=== PATIENT | male | born 1940 | race Caucasian/White ===

== ENCOUNTER 2016-10-30 17:34 | Emergency (ER) | payer MEDICARE, BC ==
[2016-10-30 18:19] VITALS: BP 172/81
[2016-10-30] MEDS ORDERED: Lidocaine 2% VISCOUS* 15 ML UDC PO ONE (19:09)
--- NOTE | 2016-10-30 19:09 | UC ---
Abdominal Pain Male HPI - HPI Summary HPI Summary: 1 WEEK OF INTERMITTENT EPIGASTRIC PAIN, FATIGUE AND CHILLS. NO FEVER. NO CP, NAUSEA, SOB OR SWEATS. NO ASSOCIATION WITH FOOD. NOT WORSE WITH POSITION CHANGE OR EXERTION. - History of Current Complaint Chief Complaint: UCAbdominalPain Stated Complaint: ABD PAIN Time Seen by Provider: 10/30/16 18:52 Hx Obtained From: Patient, Family/Home Appraiser - Onset/Duration: Gradual Onset, Lasting Days, Still Present Timing: Intermittent Episodes Lasting: Severity Initially: Mild Severity Currently: Mild Pain Intensity: 2 Pain Scale Used: 0-10 Numeric Location: Epigastric Radiates: No Character: Aching, Dull Aggravating Factor(s):: Nothing Alleviating Factor(s): Spontaneous Resolution Associated Signs And Symptoms: Positive: Negative - Allergies/Home Medications Allergies/Adverse Reactions: Allergies Allergy/AdvReac Type Severity Reaction Status Date / Time No Known Allergies Allergy Verified 10/30/16 18:19 PMH/Surg Hx/FS Hx/Imm Hx Cardiovascular History Of: Reports: Hypertension GI/ History Of: Reports: Renal Disease - hydronephrosis,? mass - Surgical History Surgical History: Yes Surgery Procedure, Year, and Place: [place] and [place] [facility] [place] CHILD , [place] [facility] [place] Family History Known Family History: Negative: Hypertension - Social History Alcohol Use: Rare Substance Use Type: None Smoking Status (MU): Former Smoker Amount Used/How Often: 1 PPD X 5 YEARS Have You Smoked in the Last Year: No When Did the Patient Quit Smoking/Using Tobacco: 31 YEARS AGO Review of Systems Constitutional: Negative Respiratory: Negative Cardiovascular: Negative Gastrointestinal: Abdominal Pain Genitourinary: Negative All Other Systems Reviewed And Are Negative: Yes Physical Exam Triage Information Reviewed: Yes Appearance: Well-Appearing, No Pain Distress, Well-Nourished Vital Signs: Initial Vital Signs Temp 97.8 F 10/30/16 18:13 Pulse 60 10/30/16 18:13 Resp 18 10/30/16 18:13 BP 172/81 10/30/16 18:13 Pulse Ox 97 10/30/16 18:13 Vital Signs Reviewed: Yes Eyes: Positive: Conjunctiva Clear ENT: Positive: Hearing grossly normal Neck: Positive: Supple Respiratory Exam: Normal Cardiovascular Exam: Normal Abdomen Description: Positive: Soft, Other: - MILDLY TENDER EPIGASTRIC. Negative: CVA Tenderness (R), CVA Tenderness (L), Distended, Guarding Bowel Sounds: Positive: Present Musculoskeletal: Positive: No Edema Neurological: Positive: Alert Psychological: Positive: Age Appropriate Behavior Skin: Negative: rashes Re-Evaluation - Re-Evaluation First Eval Re-Evaluation Time: 19:35 - PAIN RESOLVED AFTER GI COCKTAIL Change: Improved Abd Pain Male Course/Dx - Differential Dx/Clinical Impression Provider Diagnoses: REFLUX Discharge - Discharge Plan Condition: Stable Disposition: HOME Prescriptions: Omeprazole 40 mg PO DAILY #30 cap Patient Education Materials: Gastroesophageal Reflux Disease (ED) Referrals: Quyen Patrick MD [Primary Care Provider] - If Needed Additional Instructions: TAKE THE REFLUX MEDICINE IN THE MORNING (IDEALLY AT LEAST 30 MINUTES BEFORE YOU EAT). EAT SLOWLY. STAY UPRIGHT AT LEAST 30 MINUTES AFTER EATING. EAT SMALLER, MORE FREQUENT MEALS OPPOSED TO LARGE INFREQUENT MEALS. AVOID POSSIBLE TRIGGER FOODS - GREASY, SPICY, ACIDIC FOODS. CAFFEINE, ALCOHOL.
[2016-10-30] MEDS ORDERED: Al Hydrox/Mg Hydrox/Simet LIQ* 30 ML UDC PO ONE (19:10)
== END 2016-10-30 20:00 | disposition home or self-care (01) ==
LOC: UCEAST 17:34
DX: K21.9 Gastro-esophageal reflux disease without esophagitis (principal); Z87.891 Personal history of nicotine dependence
CPT/HCPCS: 99212; A9270-GY; G0463

== ENCOUNTER 2017-12-19 19:02 | Emergency (ER) | payer MEDICARE, BC ==
[2017-12-19] MEDS ORDERED: Tetan/Diph/Pertus SYR(Tdap)* 0.5 ML SYR(BOOSTRIX) use SYR IM ONE (21:02)
[2017-12-19] MEDS ORDERED: Amoxicillin/Clavulanate TAB* 875 MG PO ONE (21:02)
--- NOTE | 2017-12-19 21:38 | RAD ---
INDICATION: Right hand pain and redness after being "spurred by rooster" COMPARISON: None. TECHNIQUE: 4 views of the right hand were obtained. FINDINGS: The adequately corticated bones are in normal alignment. No significant focal osseous abnormality or fracture is seen. Mild degenerative changes include joint space narrowing of the distal greater than the proximal interphalangeal joints with marginal osteophyte formation at the index and middle finger distal interphalangeal joints. IMPRESSION: Age-appropriate degenerative changes without radiographically apparent acute abnormality. If the patient's symptoms persist, follow-up imaging is recommended.
[2017-12-19 22:13] VITALS: BP 133/74
--- NOTE | 2017-12-20 05:05 | ED ---
Augie Branch Jennifer, scribed for Milton Arnett MD on 12/19/17 at 2054 . Upper Extremity Pain - HPI Summary HPI Summary: The patient is a 77 year old male who presents with right hand pain and redness after being spurred by his rooster twice this morning at 06:30. The patient states there was some bleeding at the site of injury. Flicking his wrists worsens the pain. He describes that one spur went into his dorsal hand sideways about 1 inch while another spur poked him on the palm of his hand. The patient denies his tetanus is up to date. - History of Current Complaint Chief Complaint: EDExtremityUpper Stated Complaint: SPURRED BY ROOSTER Time Seen by Provider: 12/19/17 20:39 Hx Obtained From: Patient Mechanism Of Injury: Other - Spurred by rooster Onset/Duration: Started Hours Ago - 15 hours, Still Present Timing: Constant Severity Initially: Mild Severity Currently: Mild Pain Location: Hand - palm and dorsal side of right hand Character: Unable to Describe Aggravating Factor(s): Movement, Flexion Alleviating Factor(s): Nothing Associated Signs & Symptoms: Positive: Redness, Other - Hand pain - Allergies/Home Medications Allergies/Adverse Reactions: Allergies Allergy/AdvReac Type Severity Reaction Status Date / Time No Known Allergies Allergy Verified 12/19/17 19:30 PMH/Surg Hx/FS Hx/Imm Hx Endocrine/Hematology History: Denies: Hx Diabetes Cardiovascular History: Reports: Hx Hypertension Denies: Other Cardiovascular Problems/Disorders Respiratory History: Reports: Hx Sleep Apnea Denies: Other Respiratory Problems/Disorders GI History: Denies: Other GI Disorders History: Reports: Hx Benign Prostatic Hyperplasia, Hx Renal Disease - hydronephrosis,? mass, Other Problems/Disorders - hydronephrosis Musculoskeletal History: Denies: Other Musculoskeletal History Sensory History: Reports: Hx Contacts or Glasses - READING Denies: Hx Hearing Aid Opthamlomology History: Reports: Hx Contacts or Glasses - READING - Surgical History Surgery Procedure, Year, and Place: [place] [facility] [place] CH[place] , [place] [facility] [place]x Anesthesia Reactions: No Infectious Disease History: No Infectious Disease History: Denies: Traveled Outside the [place] in Last 30 Days - Family History Known Family History: Negative: Hypertension - Social History Alcohol Use: Rare Substance Use Type: Reports: None Smoking Status (MU): Former Smoker Amount Used/How Often: 1 PPD X 5 YEARS Have You Smoked in the Last Year: No Review of Systems Positive: Other - Right hand pain Positive: Other - Redness on right hand around sites of injury All Other Systems Reviewed And Are Negative: Yes Physical Exam - Summary Physical Exam Summary: GENERAL: ~Patient is a well developed and nourished M who is lying comfortable in the stretcher. ~Patient is not in any acute respiratory distress. HEAD AND FACE: Normocephalic EYES: PERRLA, EOMI x 2. EARS: Hearing grossly intact. MOUTH: Oropharynx within normal limits. NECK: Supple, trachea is midline, no adenopathy, no JVD, no carotid bruit. CHEST: Symmetric, no tenderness at palpation LUNGS: Clear to auscultation bilaterally. No wheezing or crackles. CVS: Regular rate and rhythm, S1 and S2 present, no murmurs or gallops appreciated. ABDOMEN: Soft, non-tender. Bowel sounds are normal. No abdominal abnormal pulsations. EXTREMITIES: Penetration wound to palmar surface and dorsal aspect of right hand. Full ROM in all major joints, no edema, no cyanosis or clubbing. NEURO: Neurovascularly intact, all nerves working including ulnar, radial, and medial nerves. Alert and oriented x 3. No acute neurological deficits. Speech is normal and follows commands. SKIN: Dry and warm Triage Information Reviewed: Yes Vital Signs On Initial Exam: Initial Vitals Temp Pulse Resp BP Pulse Ox 98.8 F 69 16 129/70 97 12/19/17 19:20 12/19/17 19:20 12/19/17 19:20 12/19/17 19:20 12/19/17 19:20 Vital Signs Reviewed: Yes Diagnostics - Vital Signs Vital Signs Temp Pulse Resp BP Pulse Ox 12/19/17 19:20 98.8 F 69 16 129/70 97 - Laboratory Lab Statement: Any lab studies that have been ordered have been reviewed, and results considered in the medical decision making process. - Radiology Hand XR Xray Interpretation: No Acute Changes - Age-appropriate degenerative changes without radiographically apparent acute abnormality. If the patient's symptoms persist, follow-up imaging is recommended. Dr. Arnett has reviewed this report. Radiology Interpretation Completed By: Radiologist Course/Dx - Course Course Of Treatment: The patient is a 77 year old male who presents with right hand pain and redness after being spurred by a rooster twice this morning at 06: 30. In the ED course the patient was given Tetanus and Augmentin. Hand XR was unremarkable. The patient will be discharged home on 10-day course of Augmentin and given strict return precautions, in particular infection. The patient is diagnosed with hand injury. - Diagnoses Provider Diagnoses: Hand injury Discharge - Sign-Out/Discharge Documenting (check all that apply): Discharge/Admit/Transfer - Discharge Plan Condition: Stable Disposition: HOME Prescriptions: Amoxicillin/Clavulanate TAB* [Augmentin TAB 875*] 875 mg PO BID #20 tab Patient Education Materials: Wound Infection (ED) Referrals: Quyen Patrick MD [Primary Care Provider] - Additional Instructions: Follow up with your primary care physician in three days. Return to the emergency department for any new or worsening symptoms. - Billing Disposition and Condition Condition: STABLE Disposition: HOME The documentation as recorded by the Augie baez Jennifer accurately reflects the service I personally performed and the decisions made by , Milton Arnett MD.
== END 2017-12-19 22:13 | disposition home or self-care (01) ==
LOC: ED 19:02
DX: S61.451A Open bite of right hand, initial encounter (principal); W61.91XA Bitten by other birds, initial encounter; Y92.9 Unspecified place or not applicable; Z87.891 Personal history of nicotine dependence
CPT/HCPCS: 90471; 90715; 99282; A9270-GY

== ENCOUNTER 2018-02-19 21:54 | Emergency (ER) | payer MEDICARE, BC ==
[2018-02-19 22:03] VITALS: BP 127/65
[2018-02-19] MEDS ORDERED: Lidocaine 2% PF * 5 ML VIAL INJ ONE (22:05)
--- NOTE | 2018-02-19 22:05 | UC ---
Laceration HPI - HPI Summary HPI Summary: 77 yo male presents with laceration to LEFT hand. 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 He cleaned it well and his convinced him to come to for ? stitches. Last tetanus was within the last 5 years from other injuries. - History Of Current Complaint Chief Complaint: UCLaceration Stated Complaint: LACERATION Time Seen by Provider: 02/19/18 22:04 Hx Obtained From: Patient Laceration Location: Finger Mechanism Of Injury: Sharp Trauma Severity: Mild Pain Intensity: 1 Pain Scale Used: 0-10 Numeric - Allergies/Home Medications Allergies/Adverse Reactions: Allergies Allergy/AdvReac Type Severity Reaction Status Date / Time No Known Allergies Allergy Verified 02/19/18 22:03 Home Medications: Home Medications NK [No Home Medications Reported] 02/19/18 [History Confirmed 02/19/18] PMH/Surg Hx/FS Hx/Imm Hx - Additional Past Medical History Additional PMH: None Previously Healthy: Yes - Surgical History Surgical History: Yes Surgery Procedure, Year, and Place: Right and left Hernia Rep[place] 1992, [place] [facility] [place] Tonsillect[place] A CHILD , pro[place]E surgery, 02/17/14, [facility] [place] - Family History Known Family History: Positive: None Negative: Hypertension - Social History Occupation: Retired Lives: With Family Alcohol Use: Rare Substance Use Type: None Smoking Status (MU): Former Smoker Amount Used/How Often: 1 PPD X 5 YEARS Have You Smoked in the Last Year: No When Did the Patient Quit Smoking/Using Tobacco: 31 YEARS AGO Review of Systems Constitutional: Negative Skin: Other - Laceration left hand Respiratory: Negative Cardiovascular: Negative Neurovascular: Negative Musculoskeletal: Negative Neurological: Negative Psychological: Negative All Other Systems Reviewed And Are Negative: Yes Physical Exam - Summary Physical Exam Summary: GENERAL: NAD. WDWN. No pain distress. SKIN: 1.5cm stellate laceration to base of left thumb. Scant bleeding. Subcutaneous tissue exposed. No tendon involvement. No streaking, bleeding, or drainage. NECK: Supple. Nontender. No lymphadenopathy. CHEST: No accessory muscle use. Breathing comfortably and in no distress. CV: Pulses intact MSK: FROM Left thumb. NEURO: Alert. Sensations left hand and all fingers PSYCH: Age appropriate behavior. Triage Information Reviewed: Yes Vital Signs: Initial Vital Signs Temp 99.0 F 02/19/18 21:59 Pulse 75 02/19/18 21:59 Resp 18 02/19/18 21:59 BP 127/65 02/19/18 21:59 Pulse Ox 95 02/19/18 21:59 Laceration Repair - Laceration Repair 1 Description: Stellate Laceration Size After Repair: Length (cm) - 1.5 Modified For Repair: No Cleansing Completed Via Routine Prep: Yes Closure Material: Sutures - four 5-0 prolene Closure Method: Single Layer Suture Of: Skin Suture Type: Prolene Laceration Course/Dx - Course/Dx Course Of Treatment: A time out was performed, witnessed, and signed. The area was irrigated with 500mL sterile saline. The pt elected not to receive anesthetic - local or otherwise. In the usual sterile fashion, FOUR 5-0 prolene interrupted sutures were placed. The wound was bandaged with telfa. Pt tolerated procedure well. - Differential Dx - Laceration/Wound Provider Diagnoses: Laceration left thumb Discharge - Sign-Out/Discharge Documenting (check all that apply): Patient Departure - Discharge Plan Condition: Stable Disposition: HOME Patient Education Materials: Care For Your Stitches (DC), Laceration (DC) Referrals: Quyen Patrick MD [Primary Care Provider] - Additional Instructions: If you develop a fever, shortness of breath, chest pain, new or worsening symptoms - please call your PCP or go to the ED. Your blood pressure was high at todays visit. Please see your primary provider within 4 weeks for recheck and re-evaluation. 1) Please keep the area bandaged, clean, dry, and intact for the next 24- 48hours. 2) If you develop a fever, colored or thick discharge, increased pain or swelling - please call your PCP or go to the ED. 3) Please return in 10-14 days to have your FOUR sutures removed. - Billing Disposition and Condition Condition: STABLE Disposition: Home
== END 2018-02-19 22:22 | disposition home or self-care (01) ==
LOC: UCEAST 21:54
DX: S61.012A Laceration without foreign body of left thumb without damage to nail, initial encounter (principal); W29.8XXA Contact with other powered hand tools and household machinery, initial encounter; Y93.9 Activity, unspecified; Y92.9 Unspecified place or not applicable; Z87.891 Personal history of nicotine dependence
CPT/HCPCS: 12001; 99201; G0463

== ENCOUNTER 2018-07-09 18:14 | Emergency (ER) | payer MEDICARE, BC ==
[2018-07-09 19:26] VITALS: BP 130/67
--- NOTE | 2018-07-09 20:02 | UC ---
Laceration HPI - HPI Summary HPI Summary: Patient is a 77-year-old male who presents to the for laceration to left hand that occurred just prior to arrival. Patient states he was using a drill to drill in a nail when the drill bit slipped off the nail and struck his left hand. Last tetanus immunization was this year. Symptoms are mild in severity. No significant past medical history. Touching affected area makes symptoms worse. Rest makes symptoms better. - History Of Current Complaint Chief Complaint: UCSkin Stated Complaint: HAND INJURY Time Seen by Provider: 07/09/18 19:36 Hx Obtained From: Patient Pain Intensity: 0 - Allergies/Home Medications Allergies/Adverse Reactions: Allergies Allergy/AdvReac Type Severity Reaction Status Date / Time No Known Allergies Allergy Verified 07/09/18 19:26 PMH/Surg Hx/FS Hx/Imm Hx Previously Healthy: Yes - Surgical History Surgical History: Yes Surgery Procedure, Year, and Place: Right and left Hernia Repair 1992, 2005, [facility] [place] ; Tonsillectomy A CHILD , prostatE surgery, 02/17/14, [facility] [place] - Family History Known Family History: Positive: None Negative: Hypertension - Social History Occupation: Retired Lives: With Family Alcohol Use: Rare Substance Use Type: None Smoking Status (MU): Former Smoker Amount Used/How Often: 1 PPD X 5 YEARS Have You Smoked in the Last Year: No When Did the Patient Quit Smoking/Using Tobacco: 31 YEARS AGO Review of Systems All Other Systems Reviewed And Are Negative: Yes Musculoskeletal: Positive: Other: - Laceration to left hand Is Patient Immunocompromised?: No Physical Exam Triage Information Reviewed: Yes Appearance: Well-Appearing - Pt. sitting on chair in NAD. present. Vital Signs: Initial Vital Signs Temp 99.2 F 07/09/18 19:23 Pulse 61 07/09/18 19:23 Resp 16 07/09/18 19:23 BP 130/67 07/09/18 19:23 Pulse Ox 100 07/09/18 19:23 Vital Signs Reviewed: Yes Eyes: Positive: Conjunctiva Clear Neck: Positive: Supple Musculoskeletal: Positive: Other: - 1cm triangular shaped laceration noted to the dorsal aspect of the left hand just above the MCP joint. Full ROM of digit. Mild active bleeding. No bony tenderness. Neurological Exam: Normal Neurological: Positive: Alert Psychological Exam: Normal Skin: Positive: Other - laceration as noted above. Laceration Repair - Laceration Repair 1 Description: Irregular Laceration Size After Repair: Length (cm) - 1cm Modified For Repair: No Cleansing Completed Via Routine Prep: Yes Irrigation With Pressure Irrigation Device: Yes Closure Material: Sutures - 2 4-0 Closure Method: Single Layer Suture Of: Skin Suture Type: Nylon Laceration Course/Dx - Course/Dx Course Of Treatment: Patient presenting with a simple hand laceration. He has no bony tenderness and x-ray not obtained. Wound was repaired as noted above. Patient declined anesthesia. Suture removal in 7-10 days. Keep the wound clean and dry. To avoid excessive bending of hand. To return to the urgent care for redness, swelling or drainage from wound. Patient understands and agrees with plan. - Differential Dx - Laceration/Wound Differental Diagnoses: Abrasion, Fracture, Laceration, Tendon Laceration - Diagnosis Provider Diagnosis: Hand laceration Discharge - Sign-Out/Discharge Documenting (check all that apply): Patient Departure All imaging exams completed and their final reports reviewed: No Studies - Discharge Plan Condition: Good Disposition: HOME Patient Education Materials: Care For Your Stitches (ED), Laceration (ED) Referrals: Quyen Patrick MD [Primary Care Provider] - Additional Instructions: Suture removal in 7-10 days Keep wound clean and dry Return to for redness, swelling or drainage from wound - Billing Disposition and Condition Condition: GOOD Disposition: Home
== END 2018-07-09 20:04 | disposition home or self-care (01) ==
LOC: UCEAST 18:14
DX: S61.412A Laceration without foreign body of left hand, initial encounter (principal); W29.8XXA Contact with other powered hand tools and household machinery, initial encounter; Y93.H3 Activity, building and construction; Y92.9 Unspecified place or not applicable; Z87.891 Personal history of nicotine dependence
CPT/HCPCS: 12001; 99211; G0463

== ENCOUNTER 2019-02-13 08:03 | Observation (INO) | payer MEDICARE, BC ==
[2019-02-13] MEDS ORDERED: Albuterol/Ipratropium NEB.SOL* Albuterol 2.5 MG/Ipratropium 0.5 MG 3 ML INH ONE (08:23)
--- NOTE | 2019-02-13 08:25 | ED ---
Shortness of Breath - HPI Summary HPI Summary: This pt is a 78 y/o male presenting to [facility] c/o SOB since yesterday. Pt reports he was removing moldy drywall from the basement about 1 week ago. He notes he felt fine until yesterday. Yesterday he went back to the basement for a short period to clean up. Pt states his SOB began suddenly early afternoon yesterday and has been gradually worsening since then. He has noticed he is easily out of breath with exertion. However, he was able to sleep through the night lying down. Denies fever, chest pain, nausea, vomiting. This has never happened to his in the past. Denies any pulmonary hx. Denies tobacco use. He denies recent travel. - History of Current Complaint Chief Complaint: EDShortnessOfBreath Time Seen by Provider: 02/13/19 08:15 Hx Obtained From: Patient Onset/Duration: Lasting Days - 1, Still Present Timing: Constant Current Severity: Moderate Dyspnea At: Rest Aggravating Factors: Nothing Associated Signs & Symptoms: Negative - Allergy/Home Medications Allergies/Adverse Reactions: Allergies Allergy/AdvReac Type Severity Reaction Status Date / Time No Known Allergies Allergy Verified 02/13/19 08:11 PMH/Surg Hx/FS Hx/Imm Hx Endocrine/Hematology History: Denies: Hx Diabetes Cardiovascular History: Reports: Hx Hypertension Denies: Other Cardiovascular Problems/Disorders Respiratory History: Reports: Hx Sleep Apnea Denies: Other Respiratory Problems/Disorders GI History: Denies: Other GI Disorders History: Reports: Hx Benign Prostatic Hyperplasia, Hx Renal Disease - hydronephrosis,? mass, Other Problems/Disorders - hydronephrosis Musculoskeletal History: Denies: Other Musculoskeletal History Sensory History: Reports: Hx Contacts or Glasses - READING Denies: Hx Hearing Aid Opthamlomology History: Reports: Hx Contacts or Glasses - READING - Surgical History Surgery Procedure, Year, and Place: Right and left Hernia Repair 1993, 2005, [facility] [place] Tonsillectomy A CHILD , prostatE surgery, 02/17/14, [facility] Hx Anesthesia Reactions: No Infectious Disease History: No Infectious Disease History: Denies: Traveled Outside the [place] in Last 30 Days - Family History Known Family History: Negative: Hypertension - Social History Alcohol Use: Rare Substance Use Type: Reports: None Smoking Status (MU): Former Smoker Amount Used/How Often: 1 PPD X 5 YEARS Have You Smoked in the Last Year: No Review of Systems Negative: Fever, Chills Negative: Chest Pain Positive: Shortness Of Breath Negative: Vomiting, Nausea All Other Systems Reviewed And Are Negative: Yes Physical Exam - Summary Physical Exam Summary: Appearance: The patient is well-nourished in no acute distress and in no acute pain. Skin: The skin is warm and dry and skin color reflects adequate perfusion. HEENT: The head is normocephalic and atraumatic. The pupils are equal and reactive. The conjunctivae are clear and without drainage. Nares are patent and without drainage. Mouth reveals moist mucous membranes and the throat is without erythema and exudate. The external ears are intact. The ear canals are patent and without drainage. The tympanic membranes are intact. Neck: the neck is supple with full range of motion and non-tender. There are no carotid bruits. There is no neck vein distension. Respiratory: Chest is non-tender. Lungs are clear to auscultation and breath sounds are symmetrical and equal. Cardiovascular: Heart is regular rate and rhythm. There is no murmur or rub auscultated. There is no peripheral edema and pulses are symmetrical and equal. Abdomen: The abdomen is soft and non-tender. There are normal bowel sounds heard in all four quadrants and there is no organomegaly palpated. Musculoskeletal: There is no back tenderness noted. Extremities are non-tender with full range of motion. There is good capillary refill. There is no peripheral edema or calf tenderness elicited. Neurological: Patient is alert and oriented to person, place and time. The patient has symmetrical motor strength in all four extremities. Cranial nerves are grossly intact. Deep tendon reflexes are symmetrical and equal in all four extremities. Psychiatric: The patient has an appropriate affect and does not exhibit any anxiety or depression. Triage Information Reviewed: Yes Vital Signs On Initial Exam: Initial Vitals Temp Pulse Resp BP Pulse Ox 97.5 F 87 22 132/78 87 02/13/19 08:05 02/13/19 08:05 02/13/19 08:05 02/13/19 08:05 02/13/19 08:05 Vital Signs Reviewed: Yes Diagnostics - Vital Signs Vital Signs Temp Pulse Resp BP Pulse Ox 02/13/19 08:05 97.5 F 87 22 132/78 87 - Laboratory Result Diagrams: 02/14/19 06:45 02/14/19 06:45 Lab Statement: Any lab studies that have been ordered have been reviewed, and results considered in the medical decision making process. - Radiology Chest XR Radiology Interpretation Completed By: Radiologist Summary of Radiographic Findings: IMPRESSION: Linear density at the right lower lung could be due to atelectasis or scarring. There are no prior chest x-rays for comparison to comment on chronicity. Dr. Barajas has reviewed this report. - CT Chest CTA CT Interpretation Completed By: Radiologist Summary of CT Findings: IMPRESSION: 1. No CT of evidence of pulmonary embolism. 2. There is nonspecific scattered groundglass opacification in both lungs which could be seen in the setting of pneumonitis or pulmonary edema. 3. Mildly enlarged 1.4 cm mediastinal lymph node of unknown chronicity. 4. At the right lower lung there is a pleural-based 1.9 cm density morphologically most consistent with atelectasis, though neoplasm is not completely excluded. In the absence of other signs or symptoms of malignancy, follow-up CT imaging in 3 months is likely appropriate management. 5. Mild circumferential wall thickening of the esophagus which could be seen in the setting of esophagitis. If clinically warranted superior characterization could be made with endoscopy. Dr. Barajas has reviewed this report. - EKG 08:33 Cardiac Rate: NL - at 69 bpm EKG Rhythm: Sinus Rhythm Summary of EKG Findings: normal ST, no ectopy, no STEMI. Course/Dx - Course Course Of Treatment: Mr. Li presented with a complaint of shortness of breath. Apparently several days ago he was working in the basement of his cottage and pulling a lot of baseboard off that was mildly. Yesterday he was down in the basement again for a little while working and he began to feel short of breath. He denies any chest pain but states that he had a rough night and is short of breath with any exertion today. Reportedly his pulse ox was in the 80s on room air when first evaluated. When I evaluated him he was on a couple liters and his SPO2 was in the low 90s. He's a little tachypneic without retractions or accessory muscle use. His lungs grossly sound clear. He was placed on a monitor and kept on oxygen while an EKG, chest x-ray and labs were obtained. These were generally unremarkable. He did improve somewhat with a DuoNeb. His d-dimer was very slightly elevated and I have no concrete reason for his shortness of breath therefore a CTA was obtained which revealed a pneumonitis. I gave him some Solu-Medrol and watched him. He wanted to go home but he remained tachypneic with any exertion. He did however maintained his pulse ox. I asked the hospitalist to evaluate him for admission. - Diagnoses Provider Diagnoses: Pneumonitis - Physician Notifications Discussed Care of Patient With: Trina Fink - hospitalist Time Discussed With Above Provider: 15:06 Instructed by Provider To: Other - Discussed the case with Dr. Fink, hospitalist, who will come and evaluate the pt for admission. Discharge - Sign-Out/Discharge Documenting (check all that apply): Patient Departure - Admit to [facility] Patient Received Moderate/Deep Sedation with Procedure: No - Discharge Plan Condition: Stable Disposition: ADMITTED TO [facility] - Billing Disposition and Condition Condition: STABLE Disposition: Admitted to [facility] - Attestation Statements Document Initiated by Scribe: Yes Documenting Scribe: Renay Monreal Provider For Whom Angel is Documenting (Include Credential): Reinaldo Barajas MD Scribe Attestation: IRenay, scribed for Reinaldo Barajas MD on 02/14/19 at 0756. Scribe Documentation Reviewed: Yes Provider Attestation: The documentation as recorded by the Renay baez accurately reflects the service I personally performed and the decisions made by me, Reinaldo Barajas MD Status of Scribe Document: Viewed
[2019-02-13 08:43] LABS: ABS Basophils 0.1 10^3/ul (0-0.2); ABS Eosinophils 0.4 10^3/ul (0-0.6); ABS Lymphocytes 1.2 10^3/ul (1.0-4.8); ABS Monocytes 0.8 10^3/ul (0-0.8); ABS Neutrophils 8.5 10^3/ul (1.5-7.7); Eosinophil % 3.6 %; Hematocrit 45 % (42-52); Hemoglobin 15.2 g/dL (14.0-18.0); Lymphocyte % 11.1 %; Mean Corpuscular HGB Conc 34 g/dL (31-36); Mean Corpuscular Hemoglobin 32 pg (27-31); Mean Corpuscular Volume 94 fL (80-94); Mean Platelet Volume 8.3 fL (7.4-10.4); Nucleated Red Blood Cells % 0.1; Platelet Count 246 10^3/uL (150-450); Red Blood Count 4.83 10^6 /uL (4.18-5.48); Red Cell Distribution Width 13 % (10-15)
[2019-02-13 08:55] LABS: INR 0.98 (0.82-1.09)
[2019-02-13 09:03] LABS: Albumin/Globulin Ratio 1.4 (1-3); BUN/Creatinine Ratio 13.6 (8-20); C Reactive Protein 7.75 mg/L (<8.01); Calcium 9.3 mg/dL (8.6-10.3); EGFR African American 67.6 (>60); EGFR Non-African American 55.9 (>60); Globulin 2.9 g/dL (2-4); Potassium 4.4 mmol/L (3.5-5.0); Total Bilirubin 0.9 mg/dL (0.2-1.0); Total Protein 6.9 g/dL (6.4-8.9)
[2019-02-13 09:04] LABS: Troponin I 0.01 ng/mL (<0.04)
[2019-02-13] MEDS ORDERED: Iodixanol* (CONTRAST) 320 MG/ML 100 ML SDV IV ONE (10:04)
[2019-02-13] MEDS ORDERED: methylPREDNISolone 125 MG* 2 ML VIAL IV ONE (13:50)
[2019-02-13] MEDS ORDERED: Albuterol HFA INHALER* 8 gm MDI INH ONE (14:52)
[2019-02-13] MEDS ORDERED: Acetaminophen TAB* 325 MG PO PRN (16:05)
[2019-02-13] MEDS ORDERED: Ondansetron INJ* 2 MG/ML VIAL IV PRN (16:05)
[2019-02-13] MEDS ORDERED: Azithromycin 500 mg/250 ml NS 500 MG/250 ML BAG IVPB ONE (16:28)
[2019-02-13] MEDS ORDERED: NS 0.9% 1000 ML** 1,000 ML IV SCH (16:45)
--- NOTE | 2019-02-13 18:51 | HP ---
CC: Dr. Quyen Patrick * MEDICINE HISTORY AND PHYSICAL: DATE OF ADMISSION: 02/13/19 PROVIDER: Kierra Jones NP. ATTENDING PHYSICIAN: Dr. Trina Fink * (dictated by Kierra Jones NP). PRIMARY CARE PROVIDER: Dr. Quyen Patrick. CHIEF COMPLAINT: Shortness of breath. HISTORY OF PRESENT ILLNESS: Mr. Li is a 78-year-old male with no significant past medical history who presented to the ER today with concerns for increasing dyspnea with onset occurring yesterday on 02/12/19. He reports that since last week, he has been working in his cabin, which has a high moisture content; he was doing some ceiling work last week. Over the weekend, he worked with the [employer] and worked over the [employer] during the [employer]. Yesterday, he reports that he was working in the basement of the cabin where there was about 99% moisture content in the room, and there was also concern for moldy drywall. He does state that he attempted to open windows when possible, but he noted that his breathing started to worsen suddenly early afternoon on 02/12/19 and progressively worsened. He had difficulty breathing overnight and presented to the ER on the morning of around 8:00 a.m. for further evaluation. He denies any previous history of difficulty breathing or known pulmonary disease. He denies any history of pneumonia, PE, or DVT. He denies any recent travel or sick contacts. He denies any exposures to [place]; not in the . He reports that he feels like he is "short of oxygen," does not endorse wheezing, but does feel like he is dyspneic upon exertion. During the course of our conversation, he does become noticeably winded with conversation. In the ER, Mr. Li was treated with Solu-Medrol and evaluated with a chest x - ray, which showed a linear density at the right lower lung, which could be due to atelectasis or scarring. A chest CTA was also performed and showed no CT evidence of pulmonary embolism. There is nonspecific scattered ground-glass opacification in both lungs, which could be seen in the setting of pneumonitis or pulmonary edema. Mildly enlarged 1.4 cm mediastinal lymph node of unknown chronicity. At the right lower lung, there is a pleural-based 1.9 cm density morphologically most consistent with atelectasis, though neoplasm is not completely excluded. In the absence of other signs or symptoms of malignancy, followup CT imaging in 3 months is likely appropriate management. Mild circumferential wall thickening of the esophagus, which could be seen in the setting of esophagitis. His EKG showed normal sinus rhythm with some borderline left axis deviation, no ectopy, no ST-T wave inversions or STEMI. Mr. Li did attempt to ambulate and prepared for discharge home; however, he was still quite dyspneic and concern was expressed for his ability to function at home safely, and hospital medicine was called for admission. PAST MEDICAL HISTORY: Includes history of bilateral hydronephrosis, BPH with urinary retention, and obstructive sleep apnea; not on CPAP. PAST SURGICAL HISTORY: Includes hernia repair, tonsillectomy, and resection of prostate. HOME MEDICATIONS: He denies any prescribed medications, although he does take a variety of [employer] Supplements including a multivitamin supplement, one called [employer], magnesium, and one called Seize. ALLERGIES: No known drug allergies. FAMILY HISTORY: He reports a mother who of old age; she did have a history of a leaky valve. He reports father who had an aneurysm secondary to trauma and from complications from this injury. SOCIAL HISTORY: He reports a 4-year history of smoking and this was light social smoking only. He quit over 35 years ago. He reports rare alcohol use. Denies any history of illicit drug use. 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 He is . He has 7 living children, 1 . His , Kandace, is his surrogate decision maker and healthcare proxy. REVIEW OF SYSTEMS: He denies any fevers, although he does report that he has intermittent clamminess. No changes in appetite. He denies chest pain, palpitations, history of murmurs, or edema. He denies hemoptysis. He does endorse shortness of breath. He does state that he just started coughing this morning, occasionally notices wheezing. He has a minimally productive cough. GI: He denies abdominal pain, nausea, vomiting, diarrhea, or constipation. : Significant for history of BPH with mild urinary retention, not on medications. He denies any hematuria or dysuria. Neuro: He denies any focal weakness or sensory loss. EENT: Denies any visual or hearing complaints. No dysphagia. Musculoskeletal: Denies any new joint or muscle pains. Skin: No rashes or lesions. Psych: Denies any history of depression or anxiety. PHYSICAL EXAMINATION GENERAL: This is a 78-year-old male seen sitting up in the ED stretcher, appears younger than stated age. VITAL SIGNS: Temperature 97.5, heart rate 70, respiratory rate 24, blood pressure 158/86, and O2 saturation is 95% on room air. HEENT: Head is atraumatic, normocephalic. Face is symmetrical. Pupils are equal, round, and reactive to light and accommodation. Extraocular movements are intact. Oral mucosa is moist. There is no oropharyngeal erythema or exudate. NECK: Supple with full range of motion. There is no JVD noted. No carotid bruits auscultated. LUNGS: Clear to auscultation. There is scant inspiratory wheezing that is intermittent and mostly noticed in the upper airways. CARDIOVASCULAR: Regular rate and rhythm. No murmur appreciated. There is no peripheral edema and distal pulses are symmetric and equal in the radial and pedal pulses. ABDOMEN: Soft, nontender, nondistended. Normoactive bowel sounds. MUSCULOSKELETAL: There is no clubbing or cyanosis. There is full range of motion in all extremities. NEURO: He is alert and oriented x4. Cranial nerves II through XII are grossly intact. There is symmetrical motor strength in the upper and lower extremities. Sensation is intact to light touch to the lower extremities. PSYCH: Affect is appropriate. SKIN: Warm and dry and appears grossly intact. DIAGNOSTIC STUDIES/LAB DATA: CBC: WBC 11.0, hemoglobin 15.2, hematocrit 45, platelet count 246. D-dimer is 373. Chemistry: Sodium 139, potassium 4.4, chloride 107, carbon dioxide 27, BUN 17, creatinine 1.25, glucose 109, lactic acid 1.2, calcium 9.3. Total bilirubin 0.9, AST 28, ALT 21, alk phos 79. Troponin 0.01, CRP 7.75, BNP 97. Albumin 4.0. Imaging: As per HPI. ASSESSMENT AND PLAN: This is a 78-year-old male who presents today with concern for dyspnea that is progressively worsening, found to have abnormalities of the lungs that include nonspecific scattered ground-glass opacification in both lungs and enlarged mediastinal lymph node. He will be admitted under observation. Plan is as follows: 1. Dyspnea. Etiology is not entirely clear, although with his repeated exposures in the past and recent activity, it does appear that he has some underlying interstitial lung disease, which has not been previously diagnosed. He likely has some pneumonitis. He has received 1 loading dose of methylprednisolone and we will continue him on prednisone 60 mg tomorrow followed by a slow taper. Ultimately, we discussed that he needs a pulmonology consult for further evaluation of what is likely interstitial lung disease. We will check a urine antigen for S. pneumo and Legionella. We will start a 3-day course of azithromycin 500 mg and continue with [id number] albuterol treatments. We will continue to provide oxygen support and, given that he may have interstitial lung disease that was previously undiagnosed, he would benefit from a transthoracic echocardiogram, which we will order for tomorrow. 2. Acute kidney injury. This may be likely secondary to lung inflammation and potential infection. We will give 1 L of fluid, recheck tomorrow. 3. History of sleep apnea, not on CPAP. He manages with just positioning himself in bed on his side. 4. History of enlarged prostate with intermittent urinary retention. This is chronic. He is not on medication for this. He should continue outpatient urology followup as directed. 7. FEN. He is ordered a regular diet. 8. DVT prophylaxis. Subcu heparin. 9. Code status. He is a full code. 10. Disposition. Anticipate discharge to home when medically stable. He will need followup with his PCP and pulmonology consult. TIME SPENT: Approximately 65 minutes were spent on this admission, with more than half that time spent [id number] with the patient obtaining history and physical, performing physical examination, and reviewing the plan of care. Plan of care was also reviewed with my attending, Dr. Fink, who is in agreement. KIERRA JONES, REYNALDO [id number]/[facility] #: [id number] DELFINA
[2019-02-13] MEDS: Albuterol 2.5 MG/3 ML NEB.SOL* (0.083%) INH SCH ×2 (19:01→23:14)
[2019-02-13] MEDS: Heparin VIAL(*) 5000 UNITS/ML VIAL (FIVE THOUSAND) SUBCUT SCH (22:01)
[2019-02-14] MEDS ORDERED: Albuterol 2.5 MG/3 ML NEB.SOL* (0.083%) INH PRN (00:42)
[2019-02-14] MEDS: Heparin VIAL(*) 5000 UNITS/ML VIAL (FIVE THOUSAND) SUBCUT SCH (05:48)
[2019-02-14 07:06] LABS: ABS Eosinophils 0.1 10^3/ul (0-0.6); ABS Lymphocytes 2.1 10^3/ul (1.0-4.8); ABS Monocytes 1.1 10^3/ul (0-0.8); ABS Neutrophils 11.4 10^3/ul (1.5-7.7); Eosinophil % 0.4 %; Hematocrit 43 % (42-52); Hemoglobin 14.9 g/dL (14.0-18.0); Lymphocyte % 14.3 %; Mean Corpuscular HGB Conc 34 g/dL (31-36); Mean Corpuscular Hemoglobin 32 pg (27-31); Mean Corpuscular Volume 94 fL (80-94); Mean Platelet Volume 8.4 fL (7.4-10.4); Platelet Count 259 10^3/uL (150-450); Red Blood Count 4.63 10^6 /uL (4.18-5.48); Red Cell Distribution Width 13 % (10-15); White Blood Count 14.6 10^3/uL (3.5-10.8)
[2019-02-14 07:16] LABS: Calcium 9.3 mg/dL (8.6-10.3); EGFR African American 93.9 (>60); EGFR Non-African American 77.6 (>60)
[2019-02-14] MEDS ORDERED: Azithromycin TAB* 250 MG PO SCH (09:00)
[2019-02-14] MEDS ORDERED: predniSONE TAB* 20 MG PO SCH ×2 (09:00)
[2019-02-14 11:44] VITALS: BP 135/63
--- NOTE | 2019-02-14 18:59 | DS ---
CC: Dr. Quyen Patrick * DISCHARGE SUMMARY: DATE OF ADMISSION: 02/13/19 DATE OF DISCHARGE: 02/14/19 PRIMARY CARE PHYSICIAN: Quyen Patrick MD. PRIMARY DIAGNOSIS: Pneumonitis. SECONDARY DIAGNOSES: 1. Sleep apnea, not on CPAP. 2. Benign prostatic hyperplasia. DISCHARGE MEDICATIONS: Prednisone 40 mg daily for 5 more days. HISTORY OF PRESENT ILLNESS: Mr. Li is a 78-year-old man with BPH who presented to the emergency room due to 1 day of progressive dyspnea. He reports that for the last week, he has been working in his cabin, which has a high moisture content. 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 On day prior to presentation, he reports working in the basement of his cabin where there was a 99% moisture content in the room and also concern for moldy drywall. The patient did not wear a mask during this construction, although he did attempt to open the windows. On day prior to presentation, his breathing worsened acutely in the evening and got progressively worse. He had difficulty breathing over night. Denies history of difficulty breathing or known pulmonary disease. He denies history of pneumonia or pulmonary embolism or DVT. He has no recent sick contacts. He has no exposure to [place] and was never in the . HOSPITAL COURSE: In the emergency room, the patient was noticeably winded during conversation with dyspnea on exertion. He required supplemental oxygen to maintain oxygen saturation above 92% and he was noted to be with SiO2 of 80s on room air when first being evaluated. He was given Solu-Medrol and DuoNebs. His D-dimer was mildly elevated, so a CTA was performed, which was concerning for nonspecific, scattered ground-glass opacifications in both lungs and he was asked to be admitted to medicine for supplemental oxygen and continued treatment of pneumonitis. Throughout hospitalization, the patient had declined most medical interventions even after discussion with multiple family members. He did not want to take antibiotics and he was initially reluctant to take oral steroids, but given significant improvement by next morning after IV steroids, the patient was amenable to a course of steroids on discharge. On morning after day of presentation, the patient was able to be titrated off oxygen, was noted to be walking around the floor, in no acute distress without requiring supplemental oxygen. 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 Extensive education was given regarding signs of infection and the patient was educated to seek care immediately if he exhibits any signs of infection. The patient preferred to be discharged from the hospital given that he no longer required oxygen and felt back to his baseline. On day of discharge, a 10- point review of systems was performed and was negative. PHYSICAL EXAMINATION: The patient is afebrile, heart rate 70s, blood pressure 135/63, respiratory rate 17, oxygen saturation 96% on room air. In general, he is a well-appearing man, in no acute distress, no increased work of breathing, able to speak in full sentences. HEENT: OP clear. Moist mucous membranes. Neck: No JVD. Lungs: Clear to auscultation bilaterally. Heart: Regular rate and rhythm. No murmurs, gallops, or rubs. Abdomen: Soft, nontender, and nondistended. Extremities: Warm and well perfused. No evidence of edema. Neuro: A and O x3. No focal neuro deficits. Gait, normal. DIAGNOSTIC STUDIES/LAB DATA: Pertinent studies and labs: D-dimer 373. Creatinine on discharge 0.94. CRP 7.75. Troponin 0.01. A chest x-ray showed linear density at the right lower lung, which could be due to atelectasis or scarring. A chest CTA without evidence of pulmonary embolism, there is a nonspecific, scattered ground-glass opacification in both lungs, which could be seen in the setting of pneumonitis or pulmonary edema, mildly enlarged 1.4 cm mediastinal lymph node of unknown chronicity, at the right lower lung, there is a pleural- based 1.9 cm density, morphologically most consistent with atelectasis, though neoplasm is not completely excluded, followup CT imaging in 3 months is likely appropriate management, mild circumferential wall thickening of the esophagus, which could be seen in the setting of esophagitis. DISCHARGE PLAN: The patient reports he has an appointment tomorrow with his primary care physician. For a long-term followup, he should have repeat chest imaging given nodules seen on chest CT while admitted to the hospital. His only medication change includes addition of a prednisone burst. The patient refused antibiotics both was extensively educated on signs and symptoms of infection and to seek care immediately if he exhibits these signs. He was also referred to Pulmonology given concern for undiagnosed interstitial lung disease. He is to eat a healthy diet of unprocessed foods and resume activity as tolerated. He was educated extensively on wearing a mask if he was again exposed to poor air quality from home construction projects or smoke. DISPOSITION: To home. CONDITION: Good. TIME SPENT: Approximately 60 minutes was spent on discharge of this patient, more than half of which was spent with care coordination at bedside and for interview and exam. [id number]/[facility] #: [id number] [place]FIN[place]
[2019-02-14] MEDS ORDERED: Enoxaparin(*) 40 MG/0.4 ML SYR SUBCUT SCH (21:00)
== END 2019-02-14 12:50 | disposition home or self-care (01) ==
LOC: ED 08:03 → MED 16:05
PROVIDERS: ADMIT Internal Medicine; ATTEND Internal Medicine
DX: J18.9 Pneumonia, unspecified organism (principal); G47.30 Sleep apnea, unspecified; N40.1 Benign prostatic hyperplasia with lower urinary tract symptoms; R33.8 Other retention of urine; R06.02 Shortness of breath; Z87.891 Personal history of nicotine dependence; N17.9 Acute kidney failure, unspecified
CPT/HCPCS: 36415; 71045; 71275; 80048; 80053; 83605; 83880; 84484; 85025; 85379; 85610; 86140; 87899; 93005; 94640; 96361; 96374; 99283; A9270-GY; G0378; J0456; J2930; J7512; Q9967

== ENCOUNTER 2023-11-19 08:36 | Observation (INO) ==
[~2023-11-19 08:36] MED LIST: Dexamethasone IV 4 MG/ML VIAL 1 ml VIAL ONE; Lidocaine 2% PF 5 ML VIAL ONE; Ondansetron 4 mg VIAL 2 MG/ML 2 ml VIAL ONE; Propofol 10 MG/ML 20 ML BTL ONE
[2023-11-19] MEDS ORDERED: Famotidine IV 10 MG/ML 2 ml VIAL (20 mg) ONE (09:53)
[2023-11-19] MEDS ORDERED: cefTRIAXone 2 gm/50 mL D5W 2 GM/50 ML BAG IV ONE (09:53)
[2023-11-19] MEDS: Famotidine IV 10 MG/ML 2 ml VIAL (20 mg) IV ONE (10:20)
[2023-11-19 10:50] LABS: Rapid COVID-19 Molecular Undetected (Undetected)
[2023-11-19] MEDS ORDERED: fentaNYL 100 mcg/2 ml 50 MCG/ML VIAL ONE (11:11)
[2023-11-19] MEDS ORDERED: Naloxone 0.4 mg VIAL 0.4 mg/ml 1 ml VIAL IV PRN (11:36)
[2023-11-19] MEDS ORDERED: fentaNYL 100 mcg/2 ml 50 MCG/ML VIAL IV PRN (11:36)
[2023-11-19] MEDS ORDERED: Midazolam 2 mg/2 ml VIAL 1 mg/ml 2 ml VIAL (2 mg) ONE (12:41)
[2023-11-19] MEDS ORDERED: Furosemide 20 mg/2 ml IV VIAL ONE (13:35)
[2023-11-19] MEDS: Buffered Lidocaine 1% SYRIN 1 ml INTRADERM ONE (16:34)
[2023-11-19] MEDS: Lactated Ringers 1000 ml BAG 1,000 ML IV SCH ×2 (16:34→17:12)
[2023-11-20 06:39] LABS: Calcium 8.6 mg/dL (8.6-10.3); Creatinine, Serum 0.8 mg/dL (0.67-1.17); Potassium 4.3 mmol/L (3.5-5.0); eGFR CKD-EPI 87.8 (>60)
[2023-11-20] MEDS: cefTRIAXone 1 gm/50 mL D5W 1 GM/50 ML BAG IV ONE (09:00)
[2023-11-20 11:06] VITALS: BP 128/74
== END 2023-11-20 10:50 | disposition home or self-care (01) ==
LOC: SSU 08:36 → OR 08:36
PROVIDERS: ADMIT Urology; ATTEND Urology